=== PATIENT | male | born 1935 | race Caucasian/White ===

== ENCOUNTER 2024-06-24 19:55 | Emergency (ER) | payer MEDICARE, OTHER ==
[~2024-06-24] VITALS: Ht 172.7 cm; Wt 62.6 kg
[2024-06-24 20:01] VITALS: BP 141/60; PULSE 87; TEMP 98.8; O2SAT 99
[2024-06-24] MEDS ORDERED: CEPH-585 PO (21:57)
[2024-06-24 22:07] VITALS: RESP 16
== END 2024-06-24 22:08 | disposition home or self-care (01) ==
LOC: ER 19:57
DX: S61.412A Laceration without foreign body of left hand, initial encounter (principal); L03.114 Cellulitis of left upper limb; X58.XXXA Exposure to other specified factors, initial encounter; Y93.89 Activity, other specified; Y92.89 Other specified places as the place of occurrence of the external cause; Y99.8 Other external cause status
CPT/HCPCS: 99283; A6258